=== PATIENT | male | born 1990 | race Caucasian/White ===

== ENCOUNTER 2017-10-04 13:28 | Emergency (ER) | payer OTHER ==
[~2017-10-04] VITALS: Ht 175.3 cm; Wt 70.3 kg
[~2017-10-04 13:28] MED LIST: NOHOMEMEDICATIONS
[2017-10-04 14:46] VITALS: BP 123/78
== END 2017-10-04 14:47 | disposition home or self-care (01) ==
LOC: M.ERS 13:28
DX: S63.91XA Sprain of unspecified part of right wrist and hand, initial encounter (principal); W22.8XXA Striking against or struck by other objects, initial encounter; Y93.89 Activity, other specified; Y92.89 Other specified places as the place of occurrence of the external cause; Y99.8 Other external cause status